=== PATIENT | female | born 1975 | race Caucasian/White ===

== ENCOUNTER → 2017-08-21 | Outpatient (CLI) | payer BC ==
--- NOTE | 2017-08-21 11:40 | RADIOLOGY IMAGING REPORT ---
[place] [facility] [place] Marni Rodriguez : 1975 MR: [id number] V: [id number] EXAM DATE: ORDERING PHYSICIAN: PRIYANK HUITRON TECHNOLOGIST: Location: [facility] Patient: Marni Rodriguez : 1975 Visit/Account:[id number] Date of Sevice: 08/21/2017 Exam type: ANKLE 3 VIEW MIN RIGHT History: Rolled ankle with pain Comparison: None. Findings: There is no evidence of acute fracture-dislocation involving the right ankle. There is mild soft tis nereida swelling noted about laterally. There are mild degenerative changes seen at talonavicular joint. A linear radiopaque density projects along the plantar soft tissues adjacent to the base of the rig ht fifth medical tarsal only appreciated on the lateral view IMPRESSION: 1. No evidence of acute fracture-dislocation involving the right ankle Mild soft tissue swelling laterally Mild degenerative changes at the talonavicular joint A thin linear radiopaque density projects along the plantar soft tissues adjacent to the base of the right fifth metatarsal only appreciated on the lateral view Report Dictated By: Abby Morales MD at 08/21/2017 11:34 AM Report E-Signed By: Abby Morales MD at 08/21/2017 11:36 AM WSN:[id number]
== END ==
LOC: RAD 09:39
PROVIDERS: ATTEND Chiropractor
DX: M25.471 Effusion, right ankle (principal); R93.8 Abnormal findings on diagnostic imaging of other specified body structures

== ENCOUNTER → 2017-09-11 | Outpatient (CLI) | payer BC ==
--- NOTE | 2017-09-12 16:14 | RADIOLOGY IMAGING REPORT ---
FACILITY: [facility] [place] PATIENT NAME: JAROD ESTES : [id number] MR: [id number] V: [id number] EXAM DATE: [id number] ORDERING PHYSICIAN: RADHA NORRIS TECHNOLOGIST: Samara Juarez PROCEDURE:BILATERAL DIGITAL SCREENING MAMMOGRAM WITH CAD ASSISTED INTERPRETATION & 3D TOMOSYNTHESIS COMPARISON:None. INDICATIONS:SCREENING HISTORY: BASELINE SCREENING, HISTORY OF BENIGN RIGHT BREAST SURGICAL BIOPSY 18 YEARS AGO. FINDINGS: The breasts are extremely dense. A few round bilateral scattered benign microcalcifications. Within the inner Left breast seen on the CC Tomographic views only there is suggestion of an ovoid partially circumscribed 1.7cm nodule. This is not visible on MLO view. Otherwise unremarkable breasts. DIAGNOSTIC CATEGORY 0--INCOMPLETE: NEED ADDITIONAL IMAGING EVALUATION. RECOMMENDATIONS: ADDITIONAL MAMMOGRAPHIC VIEWS REQUIRED: LEFT BREAST. ULTRASOUND: LEFT BREAST. IMPRESSION: BIRADS 0: Needs additional imaging. Left breast spot compression CC view and Left breast Ultrasound recommended for further evaluation. Dictated by: Neil Coughlin on 09/12/2017 at 9:29 Transcribed by: BHASKAR on 09/12/2017 at 9:53 Approved by: Neil Coughlin on 09/12/2017 at 16:13 [facility]
== END ==
LOC: MAMO 01:58
PROVIDERS: ATTEND Family Medicine
DX: Z12.31 Encounter for screening mammogram for malignant neoplasm of breast (principal); R92.1 Mammographic calcification found on diagnostic imaging of breast
CPT/HCPCS: 77063; 77067

== ENCOUNTER → 2017-09-19 | Outpatient (CLI) | payer BC ==
--- NOTE | 2017-09-20 11:49 | RADIOLOGY IMAGING REPORT ---
FACILITY: [facility] PATIENT NAME: JAROD ESTES : [id number] MR: [id number] V: [id number] EXAM DATE: [id number] ORDERING PHYSICIAN: RADHA NORRIS TECHNOLOGIST: Samara Juarez PROCEDURE:LEFT DIGITAL DIAGNOSTIC MAMMOGRAM WITH CAD ASSISTED INTERPRETATION & 3D TOMOSYNTHESIS COMPARISON:Prior mammogram 09/11/17. INDICATIONS:FURTHER EVAL FINDINGS: The patient returned for spot compression view in the Left CC projection. The previously noted ovoid partially circumscribed nodule in the medial Left breast on the recent Left CC view appeared compressible and apparently represented summation shadow. There is no demonstration of malignant appearing mass, or calcification in the Left breast. DIAGNOSTIC CATEGORY 2--BENIGN FINDING. RECOMMENDATIONS: ROUTINE MAMMOGRAM AND CLINICAL EVALUATION. IMPRESSION: BIRADS 2: Benign finding No significant abnormality of the Left breast is seen. Dictated by: Abby Morales M.D. on 09/19/2017 at 13:29 Transcribed by: BHASKAR on 09/20/2017 at 10:20 Approved by: Abby Morales M.D. on 09/20/2017 at 11:48 [facility]
== END ==
LOC: MAMO 01:24
PROVIDERS: ATTEND Family Medicine
DX: R92.2 Inconclusive mammogram (principal)
CPT/HCPCS: 77065